=== PATIENT | female | born 1945 | race Caucasian/White ===

== ENCOUNTER 2018-11-02 16:24 | Emergency (ER) | payer MEDICARE, SELFPAY ==
[2018-11-02 16:29] VITALS: BP 174/92; PULSE 71; RESP 16; TEMP 36.5; O2SAT 99; BMI 19.4
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
--- NOTE | 2018-11-02 19:58 | PC.NURSE ---
orthoglass thumb spica placed with dr wong assisting
== END 2018-11-02 20:00 | disposition home or self-care (01) ==
PROVIDERS: Emergency Provider Nurse Practitioner
DX: S62.92XA Unspecified fracture of left hand, initial encounter for closed fracture (principal); W18.39XA Other fall on same level, initial encounter
CPT/HCPCS: 73110; 99283